=== PATIENT | female | born 1995 | race American Indian/Alaskan Native ===

== ENCOUNTER 2016-12-20 08:11 | Emergency (ER) | payer MEDICAID, OTHER ==
[2016-12-20 08:22] VITALS: BP 130/85
[2016-12-20] MEDS ORDERED: Lidocaine 1% 30 ML SDV INJECT ONE (08:27)
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
== END 2016-12-20 09:09 | disposition home or self-care (01) ==
LOC: DL.ED 08:11
DX: S51.811A Laceration without foreign body of right forearm, initial encounter (principal); F17.210 Nicotine dependence, cigarettes, uncomplicated; W25.XXXA Contact with sharp glass, initial encounter
CPT/HCPCS: 12002; 99283

== ENCOUNTER 2016-12-28 20:12 | Emergency (ER) | payer OTHER ==
[2016-12-28 20:24] VITALS: BP 132/106
--- NOTE | 2016-12-28 21:05 | EDM.PDOC ---
ED HPI GENERAL MEDICAL PROBLEM - General Chief Complaint: Wound Recheck Stated Complaint: STITCHES OUT? [id number] Time Seen by Provider: 12/28/16 21:01 Source of Information: Reports: Patient History Limitations: Reports: No Limitations - History of Present Illness INITIAL COMMENTS - FREE TEXT/NARRATIVE: s/p suturing last week. - Related Data Allergies Allergy/AdvReac Type Severity Reaction Status Date / Time No Known Allergies Allergy Verified 12/28/16 20:19 Home Meds: Home Meds . [No Known Home Meds] 12/20/16 [History] Past Medical History - Past Surgical History Female Surgical History: Reports: Section Social & Family History - Family History Family Medical History: Noncontributory - Tobacco Use Smoking Status *Q: Current Every Day Smoker Years of Tobacco use: 9 Packs/Tins Daily: 0.5 Used Tobacco, but Quit: No Second Hand Smoke Exposure: Yes - Caffeine Use Caffeine Use: Reports: Coffee, Energy Drinks - Alcohol Use Days Per Week of Alcohol Use: 0 Number of Drinks Per Day: 10 Total Drinks Per Week: 0 - Recreational Drug Use Recreational Drug Use: No ED ROS GENERAL - Review of Systems Review Of Systems: ROS reveals no pertinent complaints other than HPI. ED EXAM, SKIN/RASH Exam: See Below Exam Limited By: No Limitations General Appearance: Alert, WD/WN, No Apparent Distress Ears: Hearing Grossly Normal Throat/Mouth: Normal Voice, No Airway Compromise Head: Atraumatic Neck: Non-Tender, Full Range of Motion Respiratory/Chest: No Respiratory Distress Cardiovascular: Regular Rate, Rhythm GI/Abdominal: Soft, Non-Tender Extremities: Other (multiple lacerations still healing well without s/s infection.) Neurological: Alert, Oriented, Normal Cognition, Normal Gait, No Motor/Sensory Deficits Psychiatric: Normal Affect, Normal Mood Skin: Warm, Dry, Normal Color Location, Skin: Upper Extremity, Right Lymphatic: No Adenopathy Course - Vital Signs Last Recorded V/S: Last Vital Signs Temp 36.6 C 12/28/16 20:20 Pulse 62 12/28/16 20:20 Resp 16 12/28/16 20:20 BP 132/106 H 12/28/16 20:20 Pulse Ox 95 12/28/16 20:20 - Re-Assessments/Exams Free Text/Narrative Re-Assessment/Exam: 12/28/16 21:04 suture removal. Departure - Departure Time of Disposition: 21:04 Disposition: Home, Self-Care 01 Condition: Good Clinical Impression: Laceration - Discharge Information Instructions: Suture Removal, Care After Additional Instructions: 1) recheck if there is any changes or concerns.
== END 2016-12-28 21:20 | disposition home or self-care (01) ==
LOC: DL.ED 20:12
DX: S51.811D Laceration without foreign body of right forearm, subsequent encounter (principal); W25.XXXD Contact with sharp glass, subsequent encounter
CPT/HCPCS: 99281

== ENCOUNTER 2020-08-04 10:05 | Inpatient (IN) | payer OTHER ==
[~2020-08-04 10:05] MED LIST: Citric Acid/Sodium Citrate Solution 30 ML Cup PO ONE; Lactated Ringers 1,000 ML IV SCH; Oxytocin/Normal Saline 30 UNIT/500 ML BAG IV SCH; Sodium Chloride 0.9% 10 ML Syringe FLUSH PRN; Tranexamic Acid 1,000 MG in Sodium Chloride 0.9% 100 ML IV PRN; ceFAZolin 2 GM in Premix Bag 1 BAG IV ONE
[2020-08-04] MEDS: Lactated Ringers 1,000 ML IV SCH ×3 (10:21→18:36)
[2020-08-04] MEDS ORDERED: Oxytocin/Normal Saline 60 UNIT/1,000 ML BAG ONE (10:41)
[2020-08-04] MEDS ORDERED: Morphine PF 1 MG/ML Amp ITHECAL ONE (11:30)
[2020-08-04] MEDS ORDERED: Ketorolac 30 MG/ML SDV IVPUSH ONE (12:15)
[2020-08-04] MEDS ORDERED: Tranexamic Acid 1,000 MG in Sodium Chloride 0.9% 100 ML IV PRN (13:25)
[2020-08-04] MEDS ORDERED: Acetaminophen 325 MG Tab PO PRN (13:25)
[2020-08-04] MEDS ORDERED: Methylergonovine 0.2 MG/1 ML Amp IM PRN (13:25)
[2020-08-04] MEDS ORDERED: Acetaminophen/oxyCODONE 325-5 MG Tab PO PRN (13:25)
[2020-08-04] MEDS ORDERED: Misoprostol 400 MCG (4 X 100 MCG TAB) RECTAL PRN (13:25)
[2020-08-04] MEDS ORDERED: Carboprost Tromethamine 250 MCG/1 ML Amp IM PRN (13:25)
[2020-08-04] MEDS ORDERED: Naloxone 2 MG/2 ML Syringe IVPUSH PRN (13:25)
[2020-08-04] MEDS ORDERED: Ondansetron 4 MG/2 ML SDV IVPUSH PRN (13:25)
[2020-08-04] MEDS ORDERED: ePHEDrine 50 MG/ML SDV IVPUSH PRN (13:25)
[2020-08-04] MEDS ORDERED: diphenhydrAMINE 50 MG/ML SDV IVPUSH PRN (13:25)
[2020-08-04] MEDS ORDERED: Lactated Ringers 1,000 ML IV SCH ×3 (13:30→18:00)
[2020-08-04] MEDS ORDERED: Promethazine 25 MG/ML SDV IM ONE (14:23)
[2020-08-04] MEDS ORDERED: Glucagon,Human Recombinant 1 MG Vial IM PRN (14:56)
[2020-08-04] MEDS ORDERED: 50% Dextrose in Water 50 ML Syringe IV PRN (14:56)
[2020-08-04] MEDS: Insulin Lispro 100 Units/ML 3 ML Vial SUBCUT SCH (17:36)
[2020-08-04] MEDS: Simethicone 80 MG Tab.Chew PO SCH ×2 (17:36→21:26)
[2020-08-04] MEDS: Ketorolac 30 MG/ML SDV IVPUSH SCH (18:12)
[2020-08-04] MEDS: Docusate Sodium 100 MG Cap PO PRN (21:26)
[2020-08-05] MEDS: Ketorolac 30 MG/ML SDV IVPUSH SCH ×2 (01:15→07:57)
[2020-08-05] MEDS: Lactated Ringers 1,000 ML IV SCH (03:03)
--- NOTE | 2020-08-05 07:43 | OR ---
DATE: 08/04/2020 PROCEDURE PERFORMED: Repeat low transverse section with vacuum assistance. BELL RINGER: Luan Cortes MD [employer]OCIATE: Amanda Patel, Medical Student BRIEF HISTORY: A 25-year-old female presenting to the hospital for planned elective repeat low transverse section at term due to prior section and well-controlled gestational diabetes. See admission history and physical for full details. See preprocedure diagnoses for her list of risk factors. Her diabetes was very well controlled and admission glucose was 104. PREPROCEDURE DIAGNOSES: 1. 38 and 6/7 weeks' intrauterine by last menstrual period. 2. 2, para 0-1-0-1. 3. Gestational diabetes, well controlled on insulin. 4. Obesity. 5. Group B strep positive. 6. Blood type O positive. 7. Rubella nonimmune. 8. History of delivery secondary to preeclampsia and placental abruption. 9. History of x1. 10.Smoker. 11.History of depression. POSTPROCEDURE DIAGNOSES: 1. 38 and 6/7 weeks' intrauterine by last menstrual period. 2. 2, now para 1-1-0-2. 3. Gestational diabetes, well controlled on insulin. 4. Obesity. 5. Group B strep positive. 6. Blood type O positive. 7. Rubella nonimmune. 8. History of delivery secondary to preeclampsia and placental abruption. 9. History of x1. 10.Smoker. 11.History of depression. 12.Status post repeat low transverse section with vacuum assistance. CONSENT: Discussed with the patient and her significant other the indications, risks, benefits, and alternatives of repeat low transverse section including, but not limited to potential for blood loss requiring blood transfusion as well as its inherent risk, discussed injury to any internal organs or adjacent structures including large blood vessels, nerves, veins, fallopian tubes, ovaries, uterus, intestines, bladder, any other adjacent structures, and that those would be repaired as discovered and that there could be complications for her and/or the baby that would require one or both of them to be transferred to a tertiary center. Her questions were answered and consent form signed and in the chart. DETAILS OF PROCEDURE: The patient was brought to the operating room and spinal anesthesia was obtained. She was then laid in the dorsal supine position with leftward tilt and Perez indwelling catheter was then placed. Abdomen was prepped in normal sterile fashion and sterile drapes applied. Skin was then tested and skin incision was made at 12:10 a.m. and brought down to the underlying fascia using cautery and traction dissection. Fascia was incised in the midline with cautery and extended bilaterally using cautery and Cummins scissors. Superior fascial edge grasped with Kochers, tented up, and rectus muscles dissected off bluntly and with cautery. Inferior fascial edge treated in similar fashion. Rectus muscles were already in the midline and peritoneal cavity entered by blunt finger dissection. There was some bleeding from the muscle tissues, which were attempted to be controlled with cautery. Randy retractor was then placed and bladder flap created. Uterine incision was made at 12:18 and carried down until the amniotic fluid sac was seen. The hysterotomy site was further extended using the Rock method, and then at the lateral edges, bandage scissors curving upward to avoid structures in the broad ligament. Infant's head was brought up to the hysterotomy site, but it was clear that the baby's head was quite large and I was going to have difficulty getting it to deliver, therefore vacuum assistance was called for, and there were 2 pop-offs in large part because the baby also had a large amount of hair. Dr. Cortes then attempted to get the baby's head to come up through the hysterotomy site better and called for a 2nd vacuum since the 1st one was essentially blood filled, and 2nd attempt was made to get the baby delivered with vacuum assistance and we had 1 more pop-off. I was then able to bring the vertex of the baby's head up further through the hysterotomy site. Dr. Cortes was able to supply sufficient fundal pressure with the vacuum assistance in order to get the baby's head and eventually the rest of the body delivered. The baby was dried and stimulated. Infant's mouth and nose were bulb suctioned. 3- vessel umbilical cord was doubly clamped, cut, and baby taken to the warmer for further evaluation. Delivery time was at 12:22. The cord blood sample was then obtained and placenta delivered by gentle cord traction and concomitant uterine massage. Uterus cleared of all clots and debris with dry lap sponges and ring forceps. The hysterotomy site was then closed with a running lock suture of 0 Vicryl in the usual fashion. An additional [id number]-[id number] stitch x1 was used to obtain full hemostasis. The Randy retractor was then removed and pericolic gutters were cleared of all clots and debris. Hysterotomy site reinspected and hemostatic. Peritoneal layers closed at the bottom with a loose hbipde-jo-[id number] stitch and then the fascial layer irrigated, cleared of clots and debris, and fascia closed with a running stitch of 0 looped PDS. The subcutaneous tissue irrigated and skin was closed with a 4-0 Monocryl subcuticular stitch, and Mastisol and Steri-Strips were applied. Closure time was at 12:55. COMPLICATIONS: None. ESTIMATED BLOOD LOSS: 500 mL. URINE OUTPUT: 300 mL clear. IV FLUIDS: 1200 mL of crystalloids. FINDINGS: Viable male infant. score of 7 and 9, weight 3460 g, 7 pounds 10 ounces, length 19-3/4 inches, head circumference 14-1/2 inches. Normal internal anatomy. Scar tissue was thick in some areas, but not what I would consider excessive, and there were no adhesions or other remarkable complications. [facility] /[id number]
[2020-08-05] MEDS: Simethicone 80 MG Tab.Chew PO SCH ×5 (07:57→20:03)
[2020-08-05] MEDS: Prenatal Multivitamin with Calcium/Folic Acid/Iron Tab PO SCH ×2 (07:57→09:08)
[2020-08-05] MEDS: Ferrous Sulfate 325 MG Tab PO SCH (07:57)
[2020-08-05] MEDS: Docusate Sodium 100 MG Cap PO PRN ×2 (07:57→20:03)
[2020-08-05] MEDS: Insulin Lispro 100 Units/ML 3 ML Vial SUBCUT SCH ×3 (09:07→16:43)
--- NOTE | 2020-08-05 12:09 | PN ---
DATE: 08/05/2020 PROBLEM LIST: 1. 38-6/7 weeks' intrauterine by last menstrual period, status post repeat low transverse section with vacuum assistance. 2. 2, now para 1-1-0-2. 3. Gestational diabetes, well controlled on insulin. 4. Obesity. 5. Group B Streptococcus positive. 6. Blood type O positive. 7. Rubella nonimmune. 8. History of delivery secondary to preeclampsia and placental abruption. 9. History of section x1. 10.Smoker. 11.History of depression. SUBJECTIVE: The patient is and postoperative day #1 from repeat low transverse section with vacuum assistance. She has no complaints this morning. She denies any chest pain, shortness of breath, fevers, chills, headaches, changes in vision, lower extremity swelling, erythema or tenderness, pain around the incision site disproportionate to procedure, increase in vaginal bleeding, or foul-smelling vaginal discharge. She did have some nausea yesterday, but was able to tolerate dinner. She has not ambulated as of yet. Her Perez was removed just recently and she has not ambulated to the commode. Does not feel like she is passing gas at this time. Has not had a bowel movement as of yet. Pain well controlled on current oral regimen. She has initiated with her and this appears to be going well. OBJECTIVE: Vital Signs: Temperature 98.3 degrees Fahrenheit, 76 beats per minute, blood pressure 107/55 mmHg, respiratory rate 12 breaths per minute, O2 saturation by pulse oximetry 98%. General: The patient sleeping comfortably in bed, awakens to voice and becomes alert, appears in no acute distress. Has an appropriate affect. Heart: Regular rate and rhythm with no murmur heard. Lungs: Clear to auscultation bilaterally with no adventitial breath sounds. Symmetric chest expansion and air entry. Abdomen: Soft, appropriately tender, fundus firm, approximately 4 fingerbreadths below the umbilicus. Dressing: Clean, dry, and intact. Extremities: Nontender, nonconcerning scant peripheral edema, no erythema. Negative Homans sign. LABORATORY DATA: White blood cell count 12.2 (11.4 on admission). Hemoglobin 9.7 (11.2 on admission). Platelets 336 (343 on admission). Most recent glucose 81 and has been trending in the 80s to 100s. COVID negative. ASSESSMENT: 1. Intrauterine at 38-6/7 weeks' gestation by last menstrual period, status post repeat low transverse section with vacuum assistance. 2. 2, now para 1-1-0-2. 3. Gestational diabetes, well controlled on insulin. 4. Obesity. 5. Group B Streptococcus positive. Ancef given. 6. Blood type O positive. 7. Rubella nonimmune. 8. History of delivery secondary to preeclampsia and placental abruption. 9. History of section x1. 10.Smoker. 11.History of depression. PLAN: We will continue routine post section care as clinically indicated. We will continue to closely monitor blood glucose with sliding scale Humalog as needed. Encourage ambulation and monitoring of symptoms from anemia of superimposed with anemia of acute blood loss. The patient is asymptomatic at this time with reassuring vital signs. We will continue to monitor for signs and symptoms of infection. Will administer Tdap this hospital stay. Overall, mother is meeting appropriate and postoperative milestones. is recovering well at bedside and in the nursery and has initiated appropriately. Routine cares, advance activity, and anticipate discharge home on day #3. FOLLOWUP PHYSICIAN: Stacy Preston MD [facility] /[id number]
[2020-08-05] MEDS: Ibuprofen 800 MG Tab PO PRN (16:00)
[2020-08-05] MEDS: Acetaminophen/oxyCODONE 325-5 MG Tab PO PRN ×2 (16:01→21:37)
[2020-08-05] MEDS ORDERED: Oxytocin/Normal Saline 30 UNIT/500 ML BAG IV ONE (16:39)
[2020-08-06] MEDS: Ibuprofen 800 MG Tab PO PRN (00:12)
[2020-08-06] MEDS: Acetaminophen/oxyCODONE 325-5 MG Tab PO PRN ×2 (04:43→09:24)
[2020-08-06] MEDS ORDERED: Measles, Mumps & Rubella Vaccine 0.5 ML SDV SUBCUT ONE (09:00)
[2020-08-06] MEDS: Prenatal Multivitamin with Calcium/Folic Acid/Iron Tab PO SCH (09:23)
[2020-08-06] MEDS: Ferrous Sulfate 325 MG Tab PO SCH (09:23)
[2020-08-06] MEDS: Docusate Sodium 100 MG Cap PO PRN (09:23)
[2020-08-06] MEDS: Simethicone 80 MG Tab.Chew PO SCH ×2 (09:23→14:29)
[2020-08-06] MEDS: Insulin Lispro 100 Units/ML 3 ML Vial SUBCUT SCH ×2 (09:27→12:16)
[2020-08-06 12:14] VITALS: BP 120/74; PULSE 72
--- NOTE | 2020-08-06 12:52 | PN ---
DATE: 08/06/2020 SUBJECTIVE: The patient is postoperative day 2 from a repeat . was complicated by gestational diabetes. This morning, the patient is tolerating p.o., ambulating, voiding. Good pain control. Baby is doing well. She does desire discharge. PHYSICAL EXAMINATION: Vital Signs: The patient is afebrile. Heart rate 68 to 79, respiratory rate 14 to 16, blood pressure is 96 to 111 systolic over 50 to 64 diastolic, and O2 sat is 90% to 100%. Abdomen: Benign. The incision is clean, dry, and intact. Steri-Strips are still in place. Extremities: No tenderness. No edema. Pelvic: Fundus is firm. Lochia is minimal. LABORATORY DATA: The patient's postoperative hemoglobin was 9.7, down from 11.2, consistent with some mild acute blood loss anemia. She was COVID negative. Blood type is O-positive. She is rubella nonimmune. ASSESSMENT AND PLAN: Postoperative day 2 status post repeat with gestational diabetes. Fasting blood glucose this morning was 82, therefore that is starting to resolve. She does have some mild anemia. Therefore, we will continue her iron. Otherwise, we will discharge her to home. I did give her 20 oxycodone 5 mg and the patient will follow up with her primary for an incision check. [facility] /[id number]
== END 2020-08-06 14:00 | disposition home or self-care (01) | DRG 788 ==
LOC: DL.MS 10:05
PROVIDERS: ADMIT Family Medicine; ATTEND Family Medicine
PROC: 10D00Z1 Extraction of Products of Conception, Low, Open Approach (ICD-10-PCS; principal; 2020-08-04)
DX: O34.211 Maternal care for low transverse scar from previous cesarean delivery (principal); Z3A.38 38 weeks gestation of pregnancy; Z37.0 Single live birth; O24.424 Gestational diabetes mellitus in childbirth, insulin controlled; O99.214 Obesity complicating childbirth; E66.9 Obesity, unspecified; O99.334 Smoking (tobacco) complicating childbirth; F17.210 Nicotine dependence, cigarettes, uncomplicated; Z20.822 Contact with and (suspected) exposure to COVID-19
CPT/HCPCS: 01967; 36415; 59025; 59409; 82947; 85025; 85027; 86850; 86900; 86901; 90471; 90707; A9270-GY; J0690; J1815-GY; J1885; J2274; J2550; J2590; J7120; U0002

== ENCOUNTER 2020-11-25 16:06 | Emergency (ER) | payer OTHER, MEDICAID ==
[2020-11-25 16:33] VITALS: BP 147/98; PULSE 88
[2020-11-25] MEDS ORDERED: Bacitracin Oint 1 GM U/D Packet TOP ONE (17:01)
--- NOTE | 2020-11-25 17:06 | EDM.PDOC ---
ED HPI GENERAL MEDICAL PROBLEM - General Chief Complaint: Skin Complaint Stated Complaint: POSSIBLE RIPPED STITCHES Time Seen by Provider: 11/25/20 17:00 Source of Information: Reports: Patient History Limitations: Reports: No Limitations - History of Present Illness INITIAL COMMENTS - FREE TEXT/NARRATIVE: 25 y/o F c/o blood from and incision site uner her arm. Pt had a cyst removed under her R arm at the dermatology clinic. She noticed today that there was blood on her dressings and she was concerned there may be something wrong with her sutures. She reports no fever, cough, chills, purulent discharge. She has been keep wound clean and covered with Bacitracin. Onset: Today Duration: Hour(s): Location: Reports: Upper Extremity, Right - Related Data Allergies Allergy/AdvReac Type Severity Reaction Status Date / Time No Known Allergies Allergy Verified 11/25/20 16:29 Home Meds: Home Meds Folic Acid 1 mg PO DAILY 06/24/20 [History] Insulin Aspart [NovoLOG] 20 units SQ BID 06/24/20 [History] Insulin Aspart [NovoLOG] 25 units SQ DAILY 06/24/20 [History] Insulin Detemir [Levemir] 40 units SQ DAILY 06/24/20 [History] Insulin Detemir [Levemir] 45 units SQ BEDTIME 06/24/20 [History] Pnv No.95/Ferrous Fum/Folic AC [ Vitamin Tablet] 1 tab PO DAILY 06/24/20 [History] metFORMIN [Glucophage] 500 mg PO BID 06/24/20 [History] Past Medical History - Past Health History Medical/Surgical History: Denies Medical/Surgical History HEENT History: Reports: Impaired Vision, Other (See Below) Other HEENT History: wears glasses Cardiovascular History: Reports: None Respiratory History: Reports: None Gastrointestinal History: Reports: None Genitourinary History: Reports: STD APPEALS NURSE History: Reports: , Other (See Below) Other APPEALS NURSE History: hx of pre-eclampsia Musculoskeletal History: Reports: None Neurological History: Reports: None Psychiatric History: Reports: Depression Endocrine/Metabolic History: Reports: Diabetes, Gestational, Obesity/BMI 30+ Hematologic History: Reports: Anemia Immunologic History: Reports: None Oncologic (Cancer) History: Reports: None Dermatologic History: Reports: Other (See Below) Other Dermatologic History: cyst removal right arm pit - Infectious Disease History Infectious Disease History: Reports: None - Past Surgical History Head Surgeries/Procedures: Reports: None Female Surgical History: Reports: Section Social & Family History - Family History Family Medical History: No Pertinent Family History - Tobacco Use Tobacco Use Status *Q: Never Tobacco User - Caffeine Use Caffeine Use: Reports: Coffee, Tea - Recreational Drug Use Recreational Drug Use: No - Living Situation & Occupation Living situation: Reports: with Family Occupation: Employed ED ROS GENERAL - Review of Systems Review Of Systems: Comprehensive ROS is negative, except as noted in HPI. ED EXAM, SKIN/RASH Exam: See Below Exam Limited By: No Limitations General Appearance: Alert, No Apparent Distress Eye Exam: Bilateral Eye: PERRL Respiratory/Chest: No Respiratory Distress, Lungs Clear, Normal Breath Sounds, No Accessory Muscle Use, Chest Non-Tender Cardiovascular: Normal Peripheral Pulses, Regular Rate, Rhythm, No Edema, No Gallop, No JVD, No Murmur, No Rub Extremities: Other (approx 6cm incision site uner the R arm, sutures intact but oozing some blood from suture insertion point. No redenss, swelling, purulence.) Neurological: Alert, Oriented, CN II-XII Intact, Normal Cognition Course - Vital Signs Last Recorded V/S: Last Vital Signs Temp 97.1 F 11/25/20 16:30 Pulse 88 11/25/20 16:30 Resp 16 11/25/20 16:30 BP 147/98 H 11/25/20 16:30 Pulse Ox 94 L 11/25/20 16:30 Departure - Departure Time of Disposition: 17:06 Disposition: Home, Self-Care 01 Condition: Good Clinical Impression: Encounter for postoperative wound check - Discharge Information *PRESCRIPTION DRUG MONITORING PROGRAM REVIEWED*: Not Applicable *COPY OF PRESCRIPTION DRUG MONITORING REPORT IN PATIENT KARINE: Not Applicable Instructions: Wound Care, Adult Additional Instructions: Keep wound clean and covered with bacitracin. Follow up with your provider next week to have the sutures removed. If any new symptoms or concerns develop contact your primary care facility or return to the ER. Sepsis Event Note (ED) - Focused Exam Vital Signs: Vital Signs Temp Pulse Resp BP Pulse Ox 11/25/20 16:30 97.1 F 88 16 147/98 H 94 L
== END 2020-11-25 17:22 | disposition home or self-care (01) ==
LOC: DL.ED 16:06
DX: Z48.01 Encounter for change or removal of surgical wound dressing (principal); E66.9 Obesity, unspecified; Z68.41 Body mass index [BMI] 40.0-44.9, adult
CPT/HCPCS: 99283

== ENCOUNTER 2024-02-24 09:46 | Inpatient (IN) | payer MEDICAID, OTHER ==
[2024-02-24] MEDS ORDERED: Tranexamic Acid 1,000 MG in Sodium Chloride 0.9% 100 ML IV PRN ×2 (10:00→14:55)
[2024-02-24] MEDS ORDERED: Methylergonovine 0.2 MG/1 ML Amp IM PRN ×2 (10:00→14:54)
[2024-02-24] MEDS ORDERED: Carboprost Tromethamine 250 MCG/1 ML Amp IM PRN ×2 (10:00→14:51)
[2024-02-24] MEDS ORDERED: Docusate Sodium 100 MG Cap PO PRN (10:00)
[2024-02-24] MEDS ORDERED: ePHEDrine 50 MG/ML SDV IVPUSH PRN ×2 (10:00→14:52)
[2024-02-24] MEDS ORDERED: Acetaminophen 325 MG Tab PO PRN ×2 (10:00→14:50)
[2024-02-24] MEDS ORDERED: Misoprostol 100 MCG Tab RECTAL PRN ×2 (10:00→14:53)
[2024-02-24] MEDS ORDERED: Acetaminophen/oxyCODONE 325-5 MG Tab PO PRN ×2 (10:00)
[2024-02-24] MEDS ORDERED: Ibuprofen 800 MG Tab PO PRN (10:00)
[2024-02-24] MEDS ORDERED: diphenhydrAMINE 50 MG/ML SDV IVPUSH PRN ×2 (10:00→14:51)
[2024-02-24] MEDS ORDERED: Naloxone 2 MG/2 ML Syringe IVPUSH PRN ×2 (10:00→14:54)
[2024-02-24 10:18] LABS: HEMATOCRIT 34.7 % (37.0-47.0); HEMOGLOBIN 11.1 g/dL (12.0-16.0); MEAN CORPUSCULAR HEMOGLOBIN 26.6 pg (27.0-34.0); RED BLOOD CELL COUNT 4.18 10^6/uL (4.2-5.4); WHITE BLOOD CELL COUNT,WBC 11.4 10^3/uL (5.0-10.0)
[2024-02-24] MEDS: Lactated Ringers 1,000 ML IV SCH ×2 (10:22→21:45)
[2024-02-24] MEDS ORDERED: ceFAZolin 2 GM Vial ONE (11:08)
[2024-02-24] MEDS ORDERED: Oxytocin 10 Units/1 ML SDV ONE (11:08)
[2024-02-24] MEDS ORDERED: Ondansetron 4 MG/2 ML SDV ONE (11:08)
[2024-02-24] MEDS ORDERED: Ketorolac 30 MG/ML SDV ONE (11:08)
[2024-02-24] MEDS ORDERED: Tranexamic Acid 1,000 MG/10 ML Vial ONE (11:08)
[2024-02-24] MEDS ORDERED: Dexamethasone 4 MG/ML SDV ONE (11:08)
[2024-02-24] MEDS: Oxytocin/Normal Saline 30 UNIT/500 ML BAG IV SCH (12:44)
[2024-02-24] MEDS: Ondansetron 4 MG/2 ML SDV IVPUSH PRN ×2 (14:50→18:33)
[2024-02-24] MEDS ORDERED: Oxytocin/Normal Saline 30 UNIT/500 ML BAG IV SCH (15:00)
[2024-02-24] MEDS: Prenatal Multivitamin with Calcium/Folic Acid/Iron Tab PO SCH (15:59)
[2024-02-24] MEDS: Simethicone 80 MG Tab.Chew PO SCH ×2 (15:59→17:21)
[2024-02-24] MEDS: ceFAZolin 2 GM Vial IVPUSH ONE (15:59)
[2024-02-24] MEDS: Ketorolac 30 MG/ML SDV IVPUSH SCH ×2 (16:00→18:32)
[2024-02-24] MEDS ORDERED: Famotidine 20 MG/2 ML SDV IVPUSH PRN (18:29)
[2024-02-24] MEDS ORDERED: Ketorolac 30 MG/ML SDV IVPUSH SCH (18:30)
[2024-02-25 05:57] LABS: HEMATOCRIT 30.2 % (37.0-47.0); HEMOGLOBIN 9.6 g/dL (12.0-16.0); MEAN CORPUSCULAR HEMOGLOBIN 26.7 pg (27.0-34.0); MEAN CORPUSCULAR HGB CONC 31.8 g/dL (33.0-35.0); MEAN CORPUSCULAR VOLUME 84.1 fL (80-100); RED BLOOD CELL COUNT 3.59 10^6/uL (4.2-5.4); WHITE BLOOD CELL COUNT,WBC 13.5 10^3/uL (5.0-10.0)
[2024-02-25] MEDS: Docusate Sodium 100 MG Cap PO PRN (08:09)
[2024-02-25] MEDS: Prenatal Multivitamin with Calcium/Folic Acid/Iron Tab PO SCH (08:09)
[2024-02-25] MEDS: Ferrous Sulfate 325 MG Tab PO SCH (08:37)
[2024-02-25] MEDS: Ibuprofen 800 MG Tab PO PRN (08:37)
[2024-02-25] MEDS ORDERED: Ibuprofen 800 MG Tab PO PRN (14:30)
[2024-02-25] MEDS: Acetaminophen/oxyCODONE 325-5 MG Tab PO PRN ×2 (15:07→20:42)
[2024-02-26] MEDS ORDERED: Ropivacaine 100 ML EPIDUR ONE (08:31)
[2024-02-26] MEDS ORDERED: Morphine PF 10 MG/10 ML SDV EPIDUR ONE (08:31)
[2024-02-26] MEDS ORDERED: Ketorolac 30 MG/ML SDV IVPUSH ONE (08:31)
[2024-02-26] MEDS ORDERED: Oxytocin/Normal Saline 30 UNIT/500 ML BAG IV ONE (08:31)
[2024-02-26] MEDS ORDERED: Dexamethasone 4 MG/ML SDV IV ONE (08:31)
[2024-02-26] MEDS ORDERED: Tranexamic Acid 1,000 MG/10 ML Vial IV ONE (08:31)
[2024-02-26] MEDS ORDERED: Ondansetron 4 MG/2 ML SDV IV ONE (08:31)
[2024-02-26] MEDS ORDERED: Phenylephrine 1% 10 MG/ML SDV IV ONE (08:31)
[2024-02-26] MEDS: Measles, Mumps & Rubella Vaccine 0.5 ML SDV SUBCUT ONE (09:55)
[2024-02-26 16:28] VITALS: BP 124/73; PULSE 74
== END 2024-02-26 16:14 | disposition home or self-care (01) | DRG 786 ==
LOC: DL.OB 09:46 → OBSVTOIN 12:05
PROVIDERS: ADMIT Family Medicine; ATTEND Family Medicine
PROC: 10D00Z1 Extraction of Products of Conception, Low, Open Approach (ICD-10-PCS; principal; 2024-02-24 11:43)
DX: O34.211 Maternal care for low transverse scar from previous cesarean delivery (principal); O24.12 Pre-existing type 2 diabetes mellitus, in childbirth; O10.92 Unspecified pre-existing hypertension complicating childbirth; Z3A.39 39 weeks gestation of pregnancy; Z37.0 Single live birth
CPT/HCPCS: 36415; 51702; 82947; 85027; 86850; 86900; 86901; A9270-GY; J1100; J1885; J2274; J2371; J2405; J2590; J2795; J7120